=== PATIENT | female | born 1965 | race Caucasian/White ===

== ENCOUNTER 2018-06-18 11:40 | Day surgery (SDC) | payer OTHER ==
[~2018-06-18] VITALS: Ht 167.6 cm; Wt 75.1 kg
[2018-06-18] MEDS ORDERED: ZOLOFT 50MG50 MG PO (11:58)
[2018-06-18] MEDS ORDERED: LIPITOR20 MG PO (11:58)
[2018-06-18] MEDS ORDERED: HCTZ 25MG TAB25 MG PO (11:59)
[2018-06-18 12:08] VITALS: BP 125/92; PULSE 65; TEMP 98
[2018-06-18 13:30] VITALS: BP 142/89; PULSE 84; TEMP 98
[2018-06-18 13:45] VITALS: BP 106/73; PULSE 65
[2018-06-18 14:00] VITALS: BP 107/70; PULSE 55
[2018-06-18 14:15] VITALS: BP 116/73; PULSE 61
== END 2018-06-18 14:30 | disposition home or self-care (01) ==
LOC: SDCO 11:40
DX: K29.30 Chronic superficial gastritis without bleeding (principal); K29.80 Duodenitis without bleeding; I10 Essential (primary) hypertension; E78.00 Pure hypercholesterolemia, unspecified
CPT/HCPCS: J2250; J2405; J3010; J7030